=== PATIENT | male | born 1995 | race Caucasian/White ===

== ENCOUNTER 2020-12-23 14:26 | Emergency (ER) | payer OTHER ==
[~2020-12-23] VITALS: Ht 167.6 cm; Wt 64.0 kg
[2020-12-23 14:42] VITALS: BP 142/86
== END 2020-12-23 15:21 | disposition home or self-care (01) ==
LOC: ER 14:26
DX: Z02.89 Encounter for other administrative examinations (principal); H57.11 Ocular pain, right eye
CPT/HCPCS: 99283